=== PATIENT | female | born 1945 | race Caucasian/White ===

== ENCOUNTER 2017-12-19 12:19 | Inpatient (IN) | payer MEDICARE, OTHER ==
[~2017-12-19] VITALS: Ht 165.1 cm; Wt 83.9 kg
[~2017-12-19 12:19] MED LIST: ANUSOL1 EACH RECTAL; AVELOX 400 MG400 MG PO; CARDIZEM60 MG PO; CIPRO500 MG PO; CLOTRIMAZOLE-BE15 GM TOP; COREG6.25 MG PO; COZAAR 50 MG TA50 M2 PO; DUONEB 2.5-0.5 M3 ML INH; FLAGYL500 MG PO; FOLIC ACID1 MG PO; HYDRALAZINE 2525 MG PO; HYDROCORTISONE30 G9 RECTAL; LASIX 20 MG TAB20 MG PO; LEVAQUIN 500 M500 M1 PO; MUCINEX TA600 MG/TA1 PO; NITROGLYCERIN0.4 MG SUBLING; ONDANSETRON HCL4 M2 PO; PERCOCET 5-3251 EACH PO; PREDNISONE 10 M10 M1; PREDNISONE 10 M10 MG PO; PREMARIN VAGI42.5 G1 VAG; PROAIR HFA8.5 GM INH; PULMICORT0.25 MG/2 INH; SINGULAIR 10 MG10 M1 PO; SINGULAIR PO; SYMBICORT80 MCG/4.1 INH; SYNTHROID150 MCG PO; SYNTHROID200 MCG PO; TESSALON PERLE100 MG PO; VENTOLIN17 GM; VICODIN PO; VITAMIN B-12500 MCG PO; VITAMIN D1000 UNI1 PO; XOLAIR IV; XOPENEX HFA15 GM INH; ZYRTEC10 M2 PO
[2017-12-19 12:22] VITALS: BP 171/87
[2017-12-19] MEDS ORDERED: NORVASC2.5 MG PO (12:36)
[2017-12-19] MEDS ORDERED: XANAX 0.25 MG0.25 MG PO (12:36)
[2017-12-19] MEDS ORDERED: AMLODIPINE BESY10 MG PO (12:36)
[2017-12-19] MEDS ORDERED: FLONASE 0.05%50 MCG NASAL (12:41)
[2017-12-19] MEDS ORDERED: CHERATUSSIN AC118 ML PO (12:41)
[2017-12-19] MEDS ORDERED: KLONOPIN0.5 MG PO (12:41)
[2017-12-19] MEDS ORDERED: HYDROCORTISONE30 G9 RECTAL (12:41)
[2017-12-19] MEDS ORDERED: DUONEB 2.5-0.5 M3 ML INH (12:41)
[2017-12-19] MEDS ORDERED: LANTUS100 UNIT/M SUBQ (12:42)
[2017-12-19] MEDS ORDERED: NOVOLOG100 UNIT/1 SUBQ (12:42)
[2017-12-19] MEDS ORDERED: METHYLPREDNISOLO4 MG PO (12:42)
[2017-12-19] MEDS ORDERED: PRINIVIL20 MG PO (12:42)
[2017-12-19] MEDS ORDERED: PROTONIX40 M1 PO (12:43)
[2017-12-19] MEDS ORDERED: REGLAN 10 MG TA10 MG PO (12:43)
[2017-12-19] MEDS ORDERED: PREDNISONE 20 M20 MG PO (12:43)
[2017-12-19] MEDS ORDERED: SPIRIVA INH (12:43)
[2017-12-19 12:55] LABS: HEMATOCRIT 34.6 % (37.0-47.0); HEMOGLOBIN 11.4 gm/dL (12.0-15.0); MCH 28.6 pg (26.0-34.0); MCHC 33.1 g/dL (28.0-37.0); MCV 86.5 fL (80.0-100.0); MPV 8.6 fl. (7.2-11.1); NUCLEATED RBCS 0 /100WBC; PLATELET COUNT* 249 thou/uL (150-400); RDW-CV 15.1 % (10.5-14.5); WBC 16.4 thou/uL (4.0-11.0)
[2017-12-19 13:10] LABS: APTT 22.6 Seconds (25.0-31.3); PROTIME 9.5 Seconds (9.20-11.50)
[2017-12-19 13:11] LABS: ANION GAP 10 mmol/L (7-16); BUN 37 mg/dL (7-18); CALCIUM 8.6 mg/dL (8.5-10.1); CHLORIDE 102 mmol/L (98-107); CO2 26 mmol/L (21-32); CREATININE 1.2 mg/dL (0.6-1.3); GLUCOSE 143 mg/dL (70-99); POTASSIUM 5.8 mmol/L (3.5-5.1); SODIUM 138 mmol/L (136-145)
[2017-12-19 13:21] LABS: ALBUMIN 3.1 g/dL (3.4-5.0); ALKALINE PHOSPHATASE 69 U/L (46-116); NT-PRO BRAIN NAT PEPTIDE 1034 pg/mL (<300); SGOT 19 U/L (15-37); SGPT 26 U/L (30-65); TOTAL BILIRUBIN 0.4 mg/dL (<0.1-1.0); TOTAL PROTEIN 6.5 g/dL (6.4-8.2); TROPONIN-I LEVEL <0.06 ng/mL (<0.06)
[2017-12-19 13:34] LABS: ABSOLUTE MONOCYTES 0.5 thou/uL (0.0-1.2); ABSOLUTE NEUTROPHILS 14.9 thou/uL (1.6-8.1); PLATELET ESTIMATE ADEQUATE
[2017-12-19 17:30] LABS: INFLUENZA A ANTIGEN None Detected (None Detect); INFLUENZA B ANTIGEN None Detected (None Detect)
[2017-12-19 17:57] LABS: CALCIUM 8.6 mg/dL (8.5-10.1); CREATININE 1.4 mg/dL (0.6-1.3); MAGNESIUM 2.2 mg/dL (1.8-2.4); POTASSIUM 5.2 mmol/L (3.5-5.1)
--- NOTE | 2017-12-19 18:55 | NUR ---
PT WAS BOARDING AT 1804, BED ASSIGNMENT PROVIDED BY TAHIR SUP. AND WELT CUTTER STATED TO NOT COMPLETE A BOARDED ASSESSMENT DUE TO GETTING A INPATIENT BED SO SHORTLY.
[2017-12-19 19:10] VITALS: BP 156/79
[2017-12-19 19:57] VITALS: BP 156/78
[2017-12-19 20:00] VITALS: BP 176/77
[2017-12-19 23:35] VITALS: BP 149/67
[2017-12-20 01:59] LABS: HEMATOCRIT 32.3 % (37.0-47.0); HEMOGLOBIN 10.6 gm/dL (12.0-15.0); MCH 28.6 pg (26.0-34.0); MCHC 32.9 g/dL (28.0-37.0); MCV 86.7 fL (80.0-100.0); MPV 8.7 fl. (7.2-11.1); NUCLEATED RBCS 0 /100WBC; PLATELET COUNT* 217 thou/uL (150-400); RBC 3.72 mil/uL (4.20-5.00); RDW-CV 15.2 % (10.5-14.5); WBC 13.3 thou/uL (4.0-11.0)
[2017-12-20 02:18] LABS: CALCIUM 8.6 mg/dL (8.5-10.1); CREATININE 1.5 mg/dL (0.6-1.3); POTASSIUM 5.4 mmol/L (3.5-5.1); TOTAL BILIRUBIN 0.3 mg/dL (<0.1-1.0); TOTAL PROTEIN 6.1 g/dL (6.4-8.2)
[2017-12-20 02:51] LABS: ABSOLUTE LYMPHOCYTES 0.7 thou/uL (0.8-5.3); ABSOLUTE NEUTROPHILS 12.6 thou/uL (1.6-8.1); PLATELET ESTIMATE ADEQUATE
[2017-12-20 03:51] VITALS: BP 137/58
--- NOTE | 2017-12-20 05:32 | NUR ---
PT ADMITTED FROM ER. HISTORY AND ASSESSMENT COMPLETE. SR/ST ON MONITOR. DENIES PAIN. O2 2L NC. CONTACT PRECAUTIONS IN PLACE R/T HX MRSA. ORIENTED TO ROOM, CALL LIGHT, AND BED CONTROLS. VERBALIZED UNDERSTANDING. CALL LIGHT IN REACH. BED IN LOWEST POSITION.
[2017-12-20 07:30] VITALS: BP 157/70
--- NOTE | 2017-12-20 10:19 | EKG ---
[place] [address] ELECTROCARDIOGRAM REPORT Name: THIAGO MONTE Room: [address] ADM IN .R.#: [id number] Admission: 12/19/17 Attend Phys: Zach Lorenzo Discharge: Date of : 43 Report #: [id number] THIS REPORT FOR: //name// [facility] ED Test Date: 2017-12-19 Test Time: 12:30:09 Pat Name: THIAGO MONTE Department: Room: [facility] Gender: F Limited Radiology Technician: REI : 1945 Requested By: Kit Anderson Order Number: [id number] MD: Case Riddle Measurements Intervals [place] Rate: 105 P: 81 NM: 159 QRS: 58 QRSD: 100 T: 73 QT: 321 QTc: 425 Interpretive Statements Sinus tachycardia Probable left atrial enlargement Baseline wander in lead(s) V1 Compared to ECG 03/09/2017 18:11:17 No significant changes Electronically Signed On 12-20-2017 10:19:37 MINESWEEPING OFFICER by Case Riddle [email or web address] <ELECTRONICALLY SIGNED> By: Case Riddle MD, [facility] 12/20/17 1019 1230 1230 Case Riddle MD, [facility] /EPI
--- NOTE | 2017-12-20 10:47 | NUR ---
CM ASSESSMENT: Pt is A&O. Resides at home alone. Pt states that within the past 3 months, she has been having pulmonary issues. Pt is independent with ADLs, is able to cook, but stated that she would get SOB with cleaning. Pt has support family, friends and christian members that assists as needed. Pt continues to drive. Pt has a walker and cane at home that she can use as needed. Pt wears home o2 at night, provided through [employer]. Pt also has a cpap and neb. Hx of [facility], Pt wants to use them [place]. Pt has begun thinking about her future and has been looking at alf communities and is on the waiting list of one, hopes to be able to go next year. CM following for dc needs. [facility] p: [phone], f:[phone]
--- NOTE | 2017-12-20 11:00 | NUR ---
RECEIVED PT CARE 0700. PT IS ALERT AND ORIENTED X4. VSS. INSTRUCTIONAL SUPPORT TECHNICIAN TRACING ST. HEART RATE LOW 100'S. PT UP IN ROOM WITH BATHROOM PRIVILEDGES. GAIT IS STEADY. SHE DENIES BEING SOA. O2 SAT 92% ON ROOM AIR. STATES SHE WEARS O2 AT 2L HS AT HOME. AM ASSESSMENT CHARTED. MEDS PER DEC. WAITING FOR HOSPITALIST TO ROUND. CALL LIGHT WITHIN REACH. WILL CONTINUE TO MONITOR.
[2017-12-20 11:11] VITALS: BP 157/70
[2017-12-20 12:03] VITALS: BP 152/66
--- NOTE | 2017-12-20 16:59 | 2DMMODE ---
[place] [address] 2 D/M-MODE ECHOCARDIOGRAM Name: THIAGO MONTE Room: [address] IN M.R.#: [id number] Admission: 12/19/17 Attend Phys: Perez Mars Discharge: Date of : 43 Date of Service: 12/20/17 1659 Report #: [id number] THIS REPORT FOR: //name// APPROVED REPORT Study performed: 12/20/2017 14:26:52 EXAM: Comprehensive 2D, Doppler, and color-flow Echocardiogram Patient Location: Bedside BSA: 1.89 HR: 116 bpm BP: 157/70 mmHg Other Information Study Quality: Fair Indications Cardiomyopathy 2D Dimensions LVEF(%): 77.45 (>50%) IVSd: 9.99 (7-11mm) LVOT Diam: 18.07 (18-24mm) LVDd: 49.52 mm PWd: 8.55 (7-11mm) Ascending Ao: 27.30 (22-36mm) LVDs: 26.62 (25-40mm) Aortic Root: 27.25 mm Fink's LVEF: 77.45 % Volumes Left Atrial Volume (Systole) LA ESV Index: 38.30 mL/m2 Aortic Valve AoV Peak Kin.: 2.98 m/s AO Peak Gr.: 35.00 mmHg LVOT Max P.44 mmHg AO Mean Gr.: 20.00 mmHg LVOT Mean P.03 mmHg LVOT Max V: 1.83 m/s AO V2 VTI: 52.70 cm LVOT Mean V: 1.22 m/s MITCHELL (VTI): 1.83 cm2 LVOT V1 VTI: 37.70 cm Mitral Valve MV Mean Gr.: 7.51 mmHg E/A Ratio: 0.88 MV Decel. Time: 113.95 ms MV E Max Kin.: 1.28 m/[place] [address] 2 D/M-MODE ECHOCARDIOGRAM Name: THIAGO MONTE Room: [address] IN ..#: [id number] Admission: 12/19/17 Attend Phys: Perez Mars Discharge: Date of : 43 Date of Service: 12/20/17 1659 Report #: [id number] MV PHT: 33.04 ms MVA (PHT): 6.66 cm2 TDI E/Lateral E': 9.85 E/Medial E': 8.53 Medial E' Kin.: 0.15 m/s Lateral E' Kin.: 0.13 m/s Pulmonary Valve PV Peak Kin.: 1.58 m/s PV Peak Gr.: 9.98 mmHg Tricuspid Valve RAP Estimate: 20.00 mmHg TR Peak Gr.: 52.40 mmHg RVSP: 72.40 mmHg PA Pressure: 72.40 mmHg Left Ventricle The left ventricle is normal size. There is normal LV segmental wall motion. There is normal left ventricular wall thickness. Left ventricular systolic function is normal. The left ventricular ejection fraction is within the normal range. LVEF is 60-65%. Right Ventricle The right ventricle is normal size. The right ventricular systolic function is normal. Atria Left atrium is mildly dilated. Right atrium is dilated. Aortic Valve Not well visualized. No aortic regurgitation is present. Mild aortic stenosis. Mitral Valve Mitral valve leaflets are mildly thickened. Mild mitral regurgitation. Moderate mitral stenosis. Tricuspid Valve The tricuspid valve is normal in structure. Mild tricuspid regurgitation. estimated pa pressure 50 mm Hg Pulmonic Valve The pulmonary valve is normal in structure. There is no pulmonic valvular regurgitation. [place] [address] 2 D/M-MODE ECHOCARDIOGRAM Name: THIAGO MONTE Room: [address]#: [id number] Admission: 12/19/17 Attend Phys: Perez Mars Discharge: Date of : 43 Date of Service: 12/20/17 1659 Report #: [id number] The aortic root is normal in size. IVC is dilated. Pericardium There is no pericardial effusion. <Conclusion> LVEF is 60-65%. Left atrium is mildly dilated. Mild aortic stenosis. Mild mitral regurgitation. Mild tricuspid regurgitation. estimated pa pressure 50 mm Hg <ELECTRONICALLY SIGNED> By: Case Riddle MD, FACC 12/20/171658 58 58 Case Riddle MD, FAC /INF
[2017-12-20 17:13] VITALS: BP 130/56
--- NOTE | 2017-12-20 17:14 | NUR ---
PATIENT STATES SHE IS FEELING MUCH BETTER, STERIODS ARE HELPING, LOZENGES ORDERED PER PATIENT REQUEST. FLUIDS STARTED PER DR ORDERS. PATIENT HAS NO OTHER COMPLAINTS AT THIS TIME. READY FOR DINNER. BED IN LOEWST POSITION, TIME STUDY OBSERVER IN PLACE, CALL LIGHT WITHIN REACH.
[2017-12-20 20:00] VITALS: BP 114/57
[2017-12-21] VITALS: BP 107/48
--- NOTE | 2017-12-21 00:39 | NUR ---
SLEEPING MOST OF NIGHT. DENIES COMPLAINTS OF PAIN OR DISCOMFORT. NO SIGN OF DISTRESS. BED IN LOW POSITION, CALL LIGHT IN REACH, ALARM ON. WILL PROCEED WITH CURRENT PLAN OF CARE AT THIS TIME.
[2017-12-21 04:00] VITALS: BP 115/54
[2017-12-21 05:09] LABS: ABSOLUTE LYMPHOCYTES 0.5 thou/uL (0.8-5.3); ABSOLUTE MONOCYTES 0.3 thou/uL (0.0-1.2); ABSOLUTE NEUTROPHILS 17.1 thou/uL (1.6-8.1); BASOPHILS 0.1 %; HEMOGLOBIN 10.2 gm/dL (12.0-15.0); LYMPHOCYTES 2.7 %; MCH 28.5 pg (26.0-34.0); MCHC 32.9 g/dL (28.0-37.0); MCV 86.7 fL (80.0-100.0); MONOCYTES 1.6 %; MPV 9.2 fl. (7.2-11.1); NUCLEATED RBCS 0 /100WBC; PLATELET COUNT* 194 thou/uL (150-400); POLYS 95.6 %; RBC 3.57 mil/uL (4.20-5.00); RDW-CV 15.4 % (10.5-14.5); WBC 17.9 thou/uL (4.0-11.0)
[2017-12-21 05:51] LABS: ALBUMIN 2.9 g/dL (3.4-5.0); CALCIUM 7.8 mg/dL (8.5-10.1); CREATININE 1.7 mg/dL (0.6-1.3); POTASSIUM 5.1 mmol/L (3.5-5.1); TOTAL BILIRUBIN 0.3 mg/dL (<0.1-1.0); TOTAL PROTEIN 5.9 g/dL (6.4-8.2)
[2017-12-21 08:00] VITALS: BP 152/65
--- NOTE | 2017-12-21 09:00 | NUR ---
ASSUMED CARE OF PT AT 0730. PT RESTING IN BED WAITING FOR BREAKFAST. PT A&0X4, DENIES ANY PAIN OR SHORTNESS OF BREATH AT THIS TIME. PT TRACING ST WITH PVC ON THE CAR SALES CONSULTANT. ON 2L NC SAT 96%. PT WEARS HOME CPAP AT [facility]. IVF. PT UP WITH 1 ASSIST, UNSTEADY GAIT AT TIMES. PULMONARY CONSULT IN PLACE. PT GOAL FOR TODAY IS TO MONITOR RESPIRATORY STATUS AND INCREASE ACTIVITY. PT RECEIVING IV STEROIDS. AM ASSESSMENT CHARTED. MEDICATIONS PER DEC. PT REPOSITIONS SELF WITH REMINDERS. HOURLY ROUNDING OBSERVED. BED IN LOW POSITION. CALL LIGHT WITHIN REACH. WILL CONTINUE PLAN OF CARE.
[2017-12-21 11:32] LABS: CALCIUM 7.7 mg/dL (8.5-10.1); CREATININE 1.9 mg/dL (0.6-1.3); POTASSIUM 4.6 mmol/L (3.5-5.1)
[2017-12-21 11:38] VITALS: BP 130/61
[2017-12-21 16:09] VITALS: BP 124/55
--- NOTE | 2017-12-21 17:53 | NUR ---
NO ACUTE CHANGES THROUGHOUT SHIFT. REFER TO CHARTING. PT UP TO CHAIR FOR MEALS TODAY. TOLERATED WELL. PT DENIES ANY PAIN OR SHORTNESS OF BREATH THROUGHOUT SHIFT. PT CONTINUES TO TRACE SR/ST ON THE HANDLE BENDER. ON 2L NC SAT UPPER 90'S. IVF. MEDICATIONS PER DEC. PT REPOSITIONS SELF IN BED WITH REMINDERS. HOURLY ROUNDING OBSERVED. BED IN LOW POSITION. CALL LIGHT WITHIN REACH. WILL CONTINUE PLAN OF CARE.
[2017-12-21 20:00] VITALS: BP 102/47
[2017-12-22] VITALS: BP 117/47
--- NOTE | 2017-12-22 01:00 | NUR ---
ALERT AND ORIENTED X 4. RESTING IN BED. CONT. CPAP AT NIGHT. DENIES COMPLAINTS OF PAIN OR DISCOMFORT. NO SIGN OF DISTRESS. CONT. WITH PLAN OF CARE. BED IN LOW POSITION, CALL LIGHT IN REACH. BED ALARM ON.
[2017-12-22 04:00] VITALS: BP 114/52
[2017-12-22 05:15] LABS: ABSOLUTE LYMPHOCYTES 0.3 thou/uL (0.8-5.3); ABSOLUTE MONOCYTES 0.3 thou/uL (0.0-1.2); ABSOLUTE NEUTROPHILS 14.5 thou/uL (1.6-8.1); BASOPHILS 0.1 %; HEMATOCRIT 29.5 % (37.0-47.0); HEMOGLOBIN 9.7 gm/dL (12.0-15.0); LYMPHOCYTES 1.7 %; MCH 28.8 pg (26.0-34.0); MCHC 32.9 g/dL (28.0-37.0); MCV 87.5 fL (80.0-100.0); MONOCYTES 1.7 %; MPV 9.2 fl. (7.2-11.1); NUCLEATED RBCS 0 /100WBC; PLATELET COUNT* 178 thou/uL (150-400); POLYS 96.5 %; RBC 3.37 mil/uL (4.20-5.00); RDW-CV 15.7 % (10.5-14.5)
[2017-12-22 05:28] LABS: ALBUMIN 2.8 g/dL (3.4-5.0); CALCIUM 7.5 mg/dL (8.5-10.1); CREATININE 2.1 mg/dL (0.6-1.3); POTASSIUM 5.2 mmol/L (3.5-5.1); TOTAL BILIRUBIN 0.3 mg/dL (<0.1-1.0); TOTAL PROTEIN 5.7 g/dL (6.4-8.2)
[2017-12-22 07:50] VITALS: BP 117/53
[2017-12-22 11:31] VITALS: BP 124/56
[2017-12-22 15:27] VITALS: BP 128/55
--- NOTE | 2017-12-22 19:00 | NUR ---
PT ANXIOUS THROUGH SHIFT AT TIMES. PT WOULD USE BATHROOM AND TAKE OFF 02 AND THEN GET BACK TO BED AND USE CALL HANNAH STAING THAT SHE CAN NOT BREATH. WHEN DOING ROOM CHECKS NOTED THAT SEVERAL TIMES HAD 02 OFF.CHECKED 02 SATS SEVERAL TIMES DURING SHIFT NOTED THAT SATS WERE ALWAYS 97%, LUNG SOUNDS WERE ALWAYS DIMINISHED.PT BIPAP IN ROOM FOR NOC. PT REQUESTED HS XAMAX AT THIS TIME WILL MAKE ON COMING SHIFT AWARE.
[2017-12-22 20:00] VITALS: BP 115/54
[2017-12-22 23:47] LABS: URINE BILIRUBIN NEGATIVE (Negative); URINE BLOOD NEGATIVE (Negative); URINE CLARITY CLEAR; URINE COLOR YELLOW; URINE GLUCOSE-RANDOM NEGATIVE (Negative); URINE KETONES NEGATIVE (Negative); URINE LEUKOCYTES-REFLEX NEGATIVE (Negative); URINE NITRITE-REFLEX NEGATIVE (Negative); URINE PROTEIN NEGATIVE (Negative); URINE UROBILINOGEN 0.2 E.U./dl (0.2-1.0)
[2017-12-23] VITALS: BP 110/51
[2017-12-23 04:08] VITALS: BP 130/57
[2017-12-23 05:06] LABS: ABSOLUTE LYMPHOCYTES 0.1 thou/uL (0.8-5.3); ABSOLUTE MONOCYTES 0.3 thou/uL (0.0-1.2); BASOPHILS 0.2 %; HEMATOCRIT 29.9 % (37.0-47.0); HEMOGLOBIN 9.6 gm/dL (12.0-15.0); LYMPHOCYTES 1.2 %; MCH 28.6 pg (26.0-34.0); MCHC 32.2 g/dL (28.0-37.0); MCV 88.9 fL (80.0-100.0); MONOCYTES 2.2 %; MPV 9.1 fl. (7.2-11.1); NUCLEATED RBCS 0 /100WBC; PLATELET COUNT* 174 thou/uL (150-400); POLYS 96.4 %; RBC 3.36 mil/uL (4.20-5.00); RDW-CV 15.7 % (10.5-14.5); WBC 11.4 thou/uL (4.0-11.0)
[2017-12-23 05:30] LABS: ALBUMIN 3.2 g/dL (3.4-5.0); CALCIUM 7.6 mg/dL (8.5-10.1); CREATININE 2.3 mg/dL (0.6-1.3); POTASSIUM 5.2 mmol/L (3.5-5.1); TOTAL BILIRUBIN 0.5 mg/dL (<0.1-1.0)
[2017-12-23 05:40] LABS: ALBUMIN 3.3 g/dL (3.4-5.0); CALCIUM 7.7 mg/dL (8.5-10.1); CREATININE 2.3 mg/dL (0.6-1.3); MAGNESIUM 2.4 mg/dL (1.8-2.4); PHOSPHORUS* 6.1 mg/dL (2.5-4.9); POTASSIUM 5.4 mmol/L (3.5-5.1)
--- NOTE | 2017-12-23 06:02 | NUR ---
A&O X4 CALM COOPERITVE. PT SR-ST ON THE MONITOR. 3L O2 AND BIPAP AT HS. PT ON STRICT I&O AND 2000 FLUID RESTRICTION. X1 / STANDBY ASSIST. ACCU CHECKS. MAINTAIN AIRWAY IS PT GOAL. DENIES PAIN. FALL PRECAUTIONS IN PLACE/ HOURLY ROUNDING FOR SAFETY.
[2017-12-23 08:30] VITALS: BP 112/52
--- NOTE | 2017-12-23 10:53 | CON ---
[address] [address] CONSULTATION Name: THIAGO MONTE Room: [address] IN M.R.#: [id number] Admission: 12/19/17 Attend Phys: Zach Lorenzo Discharge: Date of : 43 Report #: [id number] THIS REPORT FOR: //name// CC: Case Mars CONSULT REQUESTED BY: Hospitalist. INDICATION FOR CONSULTATION: Pulmonary evaluation. HISTORY OF PRESENT ILLNESS: A 71-year-old female with past medical history includes a history of bronchial asthma. The patient has been treated by another web site designer, is reported to be on both Medrol as well as prednisone half-way, is not on oxygen during the day. She is on a CPAP and oxygen while asleep. The patient previously has also received Xolair, currently not on Xolair, also has a history of atrial flutter, not on anticoagulation. He reports increasing shortness of breath over several months, worsening significantly over the last several days, some chest discomfort associated with respiration and cough, but no sputum production, no runny nose or sore throat, no swelling of lower extremities, no calf pain. Has sleep complaints at baseline, joint pains at baseline, has some irregular bowel habits at baseline. REVIEW OF SYSTEMS: Negative for 12 points except as mentioned above. 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 SOCIAL HISTORY: Lifetime nonsmoker. No known history of heavy alcohol use or illegal drug use. ALLERGIES: FENTANYL, ERYTHROMYCIN AND SULFONAMIDE ANTIBIOTICS ARE MENTIONED ALLERGIES. CURRENT MEDICATIONS: List in [facility] reviewed. HOME MEDICATIONS: Discussion as above. PHYSICAL EXAMINATION: GENERAL: Alert, awake and oriented, not in any distress. VITAL SIGNS: Tachycardic, heart rate 115, blood pressure 152/66. She is afebrile. She is saturating in the mid 90s. She is not on oxygen. She is afebrile, temperature is 37.1. THROAT: No erythema, [place] [address] CONSULTATION Name: THIAGO MONTE Room: [address]#: [id number] Admission: 12/19/17 Attend Phys: Zach Lorenzo Discharge: Date of : 43 Report #: [id number] NECK: Does not show raised JVP. CHEST: Clear to auscultation. HEART: Regular, no murmur. ABDOMEN: Soft and nontender. EXTREMITIES: Lower extremities show no edema, no calf tenderness. LABORATORY DATA: The patient's CTA chest is reviewed, shows a calcified lung nodule. There are no infiltrates or pulmonary embolism identified. The patient's lab work also in [facility] reviewed. ASSESSMENT AND PLAN: 1. Bronchial asthma exacerbation. Agree with current therapy, continue Solu-Medrol as well as nebulized bronchodilators. We can go either way on adding doxycycline now or watching and seeing how she does. I did not order doxycycline for now. If she worsens, I will have a low threshold of adding it. Note that she is colonized with MRSA. There is no obvious infiltrate on the chest x-ray. The patient is on 2 corticosteroids long-term in the past as does use Xolair. This does need to be evaluated further. I do not see a reason to keep her on 2 corticosteroids half-way. She is also likely to be appropriate candidate for Xolair long-term and therefore, I will do relevant investigations. She has an appointment with Dr. Marinelli for a new set up as outpatient towards the end of this month. 2. Obstructive sleep apnea. We would recommend use of home CPAP and oxygen while asleep. For now, I do not have previous sleep studies available at this time. 3. Possible history of immune deficiency. The patient also reports that she has received some IV infusions for a possible immune deficiency. I do not have details available at this time. 4. Tachycardia/history of atrial fibrillation. Would defer followup to the primary service. I also recommend obtaining an echocardiogram. 5. Acute renal failure. The patient's creatinine is rising from 1.2 yesterday to 1.5. She received IV dye yesterday. Her potassium was 5.8 yesterday, down to 5.4 today. I will give her normal saline. Thanks for this consultation. <ELECTRONICALLY SIGNED> By: Kieran Parker MD 12/23/17 1053 1314 [id number] Parker MD /nt
[2017-12-23 12:00] VITALS: BP 120/50
[2017-12-23 16:00] VITALS: BP 124/52
[2017-12-23 19:50] VITALS: BP 125/54
--- NOTE | 2017-12-23 19:55 | NUR ---
ASSUMED PT CARE AT 0730, FULL ASSESMENT DONE CHARTED. PT A/O X4, ANXOIUS, SOA AT TIMES. ON 2L O2, WAS ON BIPAP A MAJORITY OF THIS SHIFT. PT REPORTS NOT SLEEPING WELL LAST NIGHT AND WANTED BIPAP ON TO HELP HER SLEEP. PT ST ON THE MONIOR. VSS, UP WITH 1 ASSIST. NEEDS REENFORCEMNT TO USE CALL LIGHT. DENIES PAIN, HOPEFUL TO GET SOME INFORMATION ON PULMONARY HTN CENTER? FLUIDS DC'D TODAY, FALL PRECATUIONS IN PLACE. REPORT GIVEN TO BLANCA AMAYA.
[2017-12-24] VITALS (7 sets, daily range): BP systolic 115–140; BP diastolic 48–60
[2017-12-24 05:17] LABS: HEMATOCRIT 28.6 % (37.0-47.0); HEMOGLOBIN 9.3 gm/dL (12.0-15.0); MCH 28.9 pg (26.0-34.0); MCHC 32.6 g/dL (28.0-37.0); MCV 88.7 fL (80.0-100.0); RBC 3.22 mil/uL (4.20-5.00); WBC 8.3 thou/uL (4.0-11.0)
[2017-12-24 05:24] LABS: CALCIUM 7.4 mg/dL (8.5-10.1); CREATININE 2.7 mg/dL (0.6-1.3); POTASSIUM 5.3 mmol/L (3.5-5.1); TOTAL BILIRUBIN 0.3 mg/dL (<0.1-1.0); TOTAL PROTEIN 5.6 g/dL (6.4-8.2)
[2017-12-24 05:40] LABS: ALBUMIN 3.1 g/dL (3.4-5.0); CALCIUM 7.5 mg/dL (8.5-10.1); CREATININE 2.7 mg/dL (0.6-1.3); PHOSPHORUS* 6.4 mg/dL (2.5-4.9); POTASSIUM 5.4 mmol/L (3.5-5.1)
--- NOTE | 2017-12-24 06:48 | NUR ---
A&O X4 CALM COOPERITVE. 3L O2 AND BIBAP AT HS. PT STEADY ON FEEL. STICT I&O AND 2K FLUID RESTRICTION. SR ON THE MONITOR. VITALS WNL. FALL PRECAUTIONS IN PLACE. HOURLY ROUNDING FOR SAFETY.
--- NOTE | 2017-12-24 14:50 | CON ---
[address] [address] CONSULTATION Name: LAVELLTHIAGO E Room: [address] IN .R.#: [id number] Admission: 12/19/17 Attend Phys: Zach Lorenzo Discharge: Date of : 43 Report #: [id number] THIS REPORT FOR: //name// CC: Case Mars DATE OF SERVICE: 12/22/2017 REQUESTING PHYSICIAN: Perez Mars DO REASON FOR CONSULTATION: Hypogammaglobulinemia. The patient was seen on 12/22. HISTORY OF PRESENT ILLNESS: This is a pleasant 71-year-old woman with severe asthma and sleep apnea who was admitted to the hospital with asthma exacerbation. She has a longstanding history of asthma. She tells me she had asthma as a child, in her midlife her asthma was better, but after 50s her asthma became persistent. She has been on inhalers. Currently, she is on Symbicort, albuterol nebulizer and Xolair. She apparently has been seeing application consultant most of the time and only recently established care with Pulmonary in [place]. She states that she is trying to switch her care to . Pulmonology, Dr. Parker, has seen her. 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 My partner, has been treating her with monthly IVIG. She has been on IVIG for 8 months now. She has a history of frequent exacerbations of asthma with frequent upper respiratory infections. She has not had pneumonia recently. Last IVIG injection was 2 weeks ago. She is scheduled for next IVIG on 01/05. Hematology consult is requested for immunodeficiency. She tells me she is doing okay. She tells me that she has developed pulmonary hypertension. She has complaints of difficulty with breathing, but does not have a productive cough. She does not have fever or chills. PAST MEDICAL HISTORY: Significant for bronchial asthma, severe COPD, atrial fibrillation, MRSA infection, congestive heart failure because of diastolic dysfunction ? and pulmonary hypertension. SOCIAL HISTORY: She is a lifetime nonsmoker. FAMILY HISTORY: Noncontributory. REVIEW OF SYSTEMS: See above. PHYSICAL EXAMINATION: GENERAL: Reveals well-developed, well-nourished woman in mild acute distress because of difficulty of breathing, but wearing oxygen via nasal cannula. VITAL SIGNS: Blood pressure 124/56, heart rate is 101, temperature 97.4 [place] 19[place] [address] CONSULTATION Name: THIAGO MONTE Room: [address]#: [id number] Admission: 12/19/17 Attend Phys: Zach Lorenzo Discharge: Date of : 43 Report #: [id number] HEENT: Does not reveal thrush. HEART: No JVD. LUNGS: No wheezing, but somewhat decreased breath sounds. ABDOMEN: Obese. LOWER EXTREMITIES: No edema. MENTAL STATUS: Alert and oriented x 3. LABORATORY DATA: Hemoglobin 9.7, white count 15.0, platelets 178 and hemoglobin on admission was 11.4. Eosinophils 0%. Sodium 138, potassium 5.2, chloride 106, BUN 76 and creatinine 2.1. IgG level 987, IgA 163 and IgM 85. ASSESSMENT AND PLAN: 1. Immunodeficiency. The patient has a history of immunodeficiency with low IgG. Not sure exactly what the syndrome she has. I will review doctors' notes. She is receiving monthly IVIG. At this point, I recommend to continue monthly IVIG. She is due for the next IVIG on 01/05. Hopefully, she will be discharged home before that. 2. Acute kidney failure on chronic. The patient has a history of kidney failure in the past and has been on dialysis for 7 weeks. 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 Consider Nephrology consult. 3. Asthma. Continue management with Dr. Parker. Thank you very much for allowing me to participate in the care of this patient. <ELECTRONICALLY SIGNED> By: Xenia Koo MD 12/24/17 1450 1444 0004Xenia Koo MD /nt
--- NOTE | 2017-12-24 17:47 | NUR ---
ASSUMED PT CARE AT 729, FULL ASSESMENT DONE CHARTED. PT A/O X4, VERY ANXIOUS. BIPAP PRN, OK WITH DR SEYMOUR, NEW ORDERS PER NEPHROLOGY, REFER TO DEC. VSS, BS STABLE, PT COUGHING UP YELLOW SPUTUME. IV REPLACED TO RIGHT RA. UP SBA, FALL PRECATUIONS IN PLACE. PT USING CALL LIGHT APPROPRILATY. WILL CONTINUE TO MONITOR
[2017-12-25 03:52] VITALS: BP 114/50
--- NOTE | 2017-12-25 04:52 | NUR ---
ASSUMED CARE OF PT AT 1900. PT IS ALERT AND ORIENTED. VSS. PERRLA. NO COMPLAINTS OF PAIN. PT HAS BEEN WEARING BIPAP FOR MOST OF THE NIGHT. PT IS IN SINUS RYTHM ON THE TELEMETRY. PT IS RESTING COMFORTABLY IN BED. RESPIRATIONS ARE EVEN AND NONLABORED. WILL CONTINUE TO MONITOR PT.
[2017-12-25 07:07] LABS: HEMATOCRIT 29.6 % (37.0-47.0); HEMOGLOBIN 9.7 gm/dL (12.0-15.0); MCH 29.1 pg (26.0-34.0); MCHC 32.8 g/dL (28.0-37.0); MCV 88.6 fL (80.0-100.0); RBC 3.34 mil/uL (4.20-5.00); RDW-CV 16.1 % (10.5-14.5); WBC 10.7 thou/uL (4.0-11.0)
[2017-12-25 07:20] LABS: CALCIUM 7.4 mg/dL (8.5-10.1); POTASSIUM 5.2 mmol/L (3.5-5.1); TOTAL BILIRUBIN 0.4 mg/dL (<0.1-1.0); TOTAL PROTEIN 5.8 g/dL (6.4-8.2)
--- NOTE | 2017-12-25 08:10 | NUR ---
Pt resting in bed, appears alert o x 4, denies chest pain, SOB, pain or discomfort. wears BIAP at HS, o2 at 2l per NC
[2017-12-25 08:37] VITALS: BP 129/54
[2017-12-25 12:00] VITALS: BP 115/52
[2017-12-25 16:00] VITALS: BP 116/89
--- NOTE | 2017-12-25 18:25 | NUR ---
Pt progressing towards goals,. In am had expressed concerns about transferring to [facility]. . She statted alot of her physicians are there Wears BIPAP when sleeping. Remains o x 4, denies chest pain, SOB, pain or discomfort
[2017-12-25 19:45] VITALS: BP 127/51
[2017-12-26] VITALS (7 sets, daily range): BP systolic 119–143; BP diastolic 50–62
--- NOTE | 2017-12-26 01:40 | NUR ---
ASSUMED CARE OF PT AT 1900. PT IS ALERT AND ORIENTED. VSS. PERRLA. NO COMPLAINTS OF PAIN. PT GETS SOA WITH EXERTION. PT IS VERY COMPLIANT WITH BIPAP. PT IS IN SINUS RYTHM ON THE TELEMETRY. PT IS RESTING COMFORTABLY IN BED. RESPIRATIONS ARE EVEN AND NONLABORED. WILL CONTINUE TO MONITOR PT.
[2017-12-26 06:14] LABS: HEMATOCRIT 28.3 % (37.0-47.0); HEMOGLOBIN 9.4 gm/dL (12.0-15.0); MCH 29.4 pg (26.0-34.0); MCHC 33.3 g/dL (28.0-37.0); MCV 88.1 fL (80.0-100.0); MPV 8.9 fl. (7.2-11.1); RBC 3.21 mil/uL (4.20-5.00); RDW-CV 15.6 % (10.5-14.5); WBC 10.9 thou/uL (4.0-11.0)
[2017-12-26 06:15] LABS: ALBUMIN 2.6 g/dL (3.4-5.0); CALCIUM 7.5 mg/dL (8.5-10.1); CREATININE 2.7 mg/dL (0.6-1.3); POTASSIUM 5.1 mmol/L (3.5-5.1); TOTAL BILIRUBIN 0.3 mg/dL (<0.1-1.0); TOTAL PROTEIN 5.2 g/dL (6.4-8.2)
[2017-12-26 06:44] LABS: ALBUMIN 2.8 g/dL (3.4-5.0); CALCIUM 7.9 mg/dL (8.5-10.1); CREATININE 2.7 mg/dL (0.6-1.3); MAGNESIUM 2.8 mg/dL (1.8-2.4); PHOSPHORUS* 5.3 mg/dL (2.5-4.9); POTASSIUM 5.3 mmol/L (3.5-5.1)
--- NOTE | 2017-12-26 17:45 | NUR ---
PATIENT RESTING IN BED. UP TO BEDSIDE COMMODE WITH X1 ASSIST. VITAL SIGNS STABLE AND PATIENT IN NOAPPARENT DISTRESS AT THIS TIME. PAITNET UTILIZING BIPAP WHILE SLEEPING AND PRN DURING THE DAY ALONG WITH 2.0 L PER NASAL CANULA. SINUS RHYTHM ON MONITOR. HOURLY ROUNDING COMPLETED FOR PATIENT SAFETY. RENAL FOLLOWING CLOSELY FOR ASSESSMENT OF KIDNEY FUNCTION AND POSSIBLE NEED FOR DIALYSIS.
[2017-12-27 04:00] VITALS: BP 119/48
--- NOTE | 2017-12-27 04:38 | NUR ---
ASSUMED CARE OF PT AT 1900. PT IS ALERT AND ORIENTED. VSS. PERRLA. NO COMPLAINTS OF PAIN. UP WITH 1 ASSIST. PT IS WEARING BIPAP AT THIS TIME. PT IS IN SINUS RYTHM ON THE TELEMETRY. PT IS RESTING COMFORTABLY IN BED. RESPIRATIONS ARE EVEN AND NONLABORED. WILL CONTINUE TO MONITOR PT.
[2017-12-27 05:27] LABS: HEMATOCRIT 30.5 % (37.0-47.0); HEMOGLOBIN 9.8 gm/dL (12.0-15.0); MCH 28.5 pg (26.0-34.0); MCHC 32.3 g/dL (28.0-37.0); MCV 88.4 fL (80.0-100.0); RBC 3.45 mil/uL (4.20-5.00); RDW-CV 15.1 % (10.5-14.5); WBC 13.9 thou/uL (4.0-11.0)
[2017-12-27 05:37] LABS: ALBUMIN 2.7 g/dL (3.4-5.0); CALCIUM 8.2 mg/dL (8.5-10.1); CREATININE 2.5 mg/dL (0.6-1.3); POTASSIUM 5.4 mmol/L (3.5-5.1); TOTAL BILIRUBIN 0.4 mg/dL (<0.1-1.0); TOTAL PROTEIN 5.3 g/dL (6.4-8.2)
[2017-12-27 08:00] VITALS: BP 134/52
[2017-12-27 11:37] VITALS: BP 131/55
--- NOTE | 2017-12-27 12:04 | NUR ---
Pt reports feeling better and anxious to go home. Kidney function improving. Goal continues to be to return home at co. Following.
--- NOTE | 2017-12-27 14:04 | NUR ---
Nutrition: Pt admitted with SOA. H/o asthma. Recent IV dye, now ARF. Pt wants to go home, feels better. +BM yday. RX: solumedrol, folic acid. Labs: albumin 2.7, prealb 38.6, BUN 127, creat 2.5, K+ 5.4, BG 206. Renal diet. [facility], currently 211#. Pt appears at low risk at this time.
[2017-12-27 15:53] VITALS: BP 159/56
--- NOTE | 2017-12-27 18:52 | NUR ---
PAITNET RESTING IN BED. UP TO CHAIR TODAY. AMBULATES WITH ASSSIT X1. PRN BIPAP USAGE OTHERWISE 3.0 L PER NASAL CANULA. EDUCATION RELATED TO RENAL FUNCTION AND RESPIRATORY STATUS PROVIDED FOR PATIENT. HOURLY ROUNDING COMPLETED FOR PATIENT SAFETY AND PATIENT PARTICIPATED IN PLAN OF CARE.
[2017-12-27 20:00] VITALS: BP 137/57
[2017-12-28] VITALS: BP 119/44
[2017-12-28 05:00] VITALS: BP 136/55
[2017-12-28 05:54] LABS: HEMATOCRIT 28.8 % (37.0-47.0); HEMOGLOBIN 9.4 gm/dL (12.0-15.0); MCH 28.2 pg (26.0-34.0); MCHC 32.7 g/dL (28.0-37.0); MCV 86.3 fL (80.0-100.0); RBC 3.34 mil/uL (4.20-5.00); RDW-CV 15.1 % (10.5-14.5); WBC 12.7 thou/uL (4.0-11.0)
[2017-12-28 06:21] LABS: ALBUMIN 2.5 g/dL (3.4-5.0); CALCIUM 8.2 mg/dL (8.5-10.1); MAGNESIUM 2.8 mg/dL (1.8-2.4); POTASSIUM 5.3 mmol/L (3.5-5.1); TOTAL BILIRUBIN 0.4 mg/dL (<0.1-1.0); TOTAL PROTEIN 5.1 g/dL (6.4-8.2)
--- NOTE | 2017-12-28 06:33 | NUR ---
ASSUMED PATIENT CARE AT 1900. PATEINT ALERT AND ORIENTED TIMES FOUR. COMPLIANT WITH BIPAP THROUGH THE NIGHT. ABLE TO AMBULATE TO THE BSC WITH STB. STATES THAT SHE IS GOING TO "ONLY DRINK WATER TODAY TO HELP WITH KIDNEY FUNCTION SO SHE CAN GO HOME" NO COMLPAINTS OF PAIN OR DISCOMFORT. VITAL SIGNS REMAIN STABLE. PECAN HULLER AND HOURLY ROUNDING COMPLETED DOCUMENTED.
[2017-12-28 08:00] VITALS: BP 139/53
[2017-12-28 10:31] VITALS: BP 157/70
--- NOTE | 2017-12-28 10:32 | NUR ---
Per Dr Marinelli, MELI provided Pt with [facility] number [phone], to schedule and appt after discharge.
[2017-12-28 12:22] VITALS: BP 157/70
--- NOTE | 2017-12-28 12:29 | NUR ---
Pt discharging to home today. CM faxed orders to [facility].
[2017-12-28] MEDS ORDERED: PREDNISONE 10 M10 MG PO (13:45)
--- NOTE | 2018-01-08 13:26 | CON ---
[address] [address] CONSULTATION Name: THIAGO MONTE Room: [address]#: [id number] Admission: 12/19/17 Attend Phys: Zach Lorenzo Discharge: 12/28/17 Date of : 43 Report #: [id number] THIS REPORT FOR: //name// CC: Case Mars NEPHROLOGY CONSULTATION CONSULTING PHYSICIAN: Perez Mars DO REASON FOR CONSULTATION: Acute kidney injury. HISTORY OF PRESENT ILLNESS: A 71-year-old female who was admitted with asthma exacerbation, respiratory failure, currently being followed by Pulmonology, is feeling much better today. She was on an MARILYN inhibitor, ARB and Lasix, all of which have been stopped because of a rising creatinine, which is what prompted Renal consult. She presently does not have any complaint. REVIEW OF SYSTEMS: Constitutional, psych, heme, eyes, ENT, respiratory, cardiac, GI, , endocrine, all negative except as documented above. PAST MEDICAL AND SURGICAL HISTORY: Asthma, history of diastolic heart failure, obstructive sleep apnea, history of nasal reconstruction surgery. SOCIAL HISTORY: No tobacco. FAMILY HISTORY: Not pertinent in this 71-year-old female. CURRENT MEDICATIONS: Reviewed. PHYSICAL EXAMINATION: VITAL SIGNS: Blood pressure 128/55, pulse 107, temperature 36.4, respirations 19. GENERAL: No acute distress. EYES: Extraocular movements intact. EARS: Externally normal. CARDIOVASCULAR: Tachycardic. LUNGS: Diminished breath sounds. ABDOMEN: Soft. MUSCULOSKELETAL: Nontender. PSYCHIATRIC: Awake, alert. LABORATORY DATA: White cell count 15, hemoglobin 9.7, platelets 178. Sodium 138, potassium 5.2, chloride 106, bicarbonate 21, BUN 76, creatinine 2.1, glucose 239, calcium 7.5, albumin 2.8. ASSESSMENT: [place] [id number] CONSULTATION Name: HTIAGO MONTE Kal Room: [address]#: [id number] Admission: 12/19/17 Attend Phys: Zach Lorenzo Discharge: 12/28/17 Date of : 43 Report #: [id number] 1. Acute kidney injury with admission creatinine of 1.2, creatinine up to 2.1 on 12/22/2017, she has an ejection fraction of 60%-65% with unpi-pv-thvdssmz aortic stenosis and a pulmonary artery pressure of 50. 2. Mild hyperkalemia. 3. Hypoalbuminemia. 4. Obstructive sleep apnea. 5. Asthma exacerbation. 6. Diabetes. 7. Chronic kidney disease stage 3, followed by Dr. Aparicio as an outpatient. The patient relates that her baseline creatinine is about 1.3. PLAN: 1. Acute kidney injury, multifactorial. She did receive 100 mL of dye as part of the CT angio on 12/19/2017, was also on losartan, lisinopril and Lasix, all of which have been discontinued. 2. Check a UA. 3. Check kidney ultrasound. 4. Continue IV fluids. 5. Check bladder scan. 6. Monitor I's and O's. 7. A 2 gram potassium dietary restriction. 8. Check a.m. lab. Thank you for requesting my opinion in the care and management of this patient. <ELECTRONICALLY SIGNED> By: Yimi Dumotn MD 01/08/18 1326 1708 [id number] Dumont MD /nt
== END 2017-12-28 15:44 | disposition home health service (06) | DRG 682 ==
LOC: M.ERS 12:19 → M.TBA-ER 14:04 → M.2W 14:04
PROVIDERS: Emergency Medicine Emergency Medical Services; Family Medicine; Internal Medicine Critical Care Medicine; Internal Medicine Nephrology; ADMIT Internal Medicine
PROC: 5A09357 Assistance with Respiratory Ventilation, Less than 24 Consecutive Hours, Continuous Positive Airway Pressure (ICD-10-PCS; principal; 2017-12-24)
PROC: 5A09357 Assistance with Respiratory Ventilation, Less than 24 Consecutive Hours, Continuous Positive Airway Pressure (ICD-10-PCS; 2017-12-25)
PROC: 5A09357 Assistance with Respiratory Ventilation, Less than 24 Consecutive Hours, Continuous Positive Airway Pressure (ICD-10-PCS; 2017-12-26)
PROC: 5A09357 Assistance with Respiratory Ventilation, Less than 24 Consecutive Hours, Continuous Positive Airway Pressure (ICD-10-PCS; 2017-12-27)
PROC: 5A09357 Assistance with Respiratory Ventilation, Less than 24 Consecutive Hours, Continuous Positive Airway Pressure (ICD-10-PCS; 2017-12-28)
DX: N17.9 Acute kidney failure, unspecified (principal); J96.21 Acute and chronic respiratory failure with hypoxia; J45.901 Unspecified asthma with (acute) exacerbation; R65.10 Systemic inflammatory response syndrome (SIRS) of non-infectious origin without acute organ dysfunction; I50.30 Unspecified diastolic (congestive) heart failure; I48.92 Unspecified atrial flutter; D80.1 Nonfamilial hypogammaglobulinemia; E87.2 Acidosis; G47.33 Obstructive sleep apnea (adult) (pediatric); N18.3 Chronic kidney disease, stage 3 (moderate); J44.9 Chronic obstructive pulmonary disease, unspecified; I48.91 Unspecified atrial fibrillation; E11.22 Type 2 diabetes mellitus with diabetic chronic kidney disease; I27.20 Pulmonary hypertension, unspecified; E87.5 Hyperkalemia; E83.39 Other disorders of phosphorus metabolism; E66.9 Obesity, unspecified; Z79.899 Other long term (current) drug therapy; Z88.2 Allergy status to sulfonamides; Z88.1 Allergy status to other antibiotic agents; Z68.30 Body mass index [BMI] 30.0-30.9, adult; Z88.8 Allergy status to other drugs, medicaments and biological substances

== ENCOUNTER 2017-12-29 13:07 | Inpatient (IN) | payer MEDICARE, OTHER ==
[~2017-12-29] VITALS: Ht 165.1 cm; Wt 79.4 kg
[~2017-12-29 13:07] MED LIST changes: +AMLODIPINE BESY10 MG PO; +CHERATUSSIN AC118 ML PO; +FLONASE 0.05%50 MCG NASAL; +KLONOPIN0.5 MG PO; +LANTUS100 UNIT/M SUBQ; +METHYLPREDNISOLO4 MG PO; +NORVASC2.5 MG PO; +NOVOLOG100 UNIT/1 SUBQ; +PREDNISONE 20 M20 MG PO; +PRINIVIL20 MG PO; +PROTONIX40 M1 PO; +REGLAN 10 MG TA10 MG PO; +SPIRIVA INH; +XANAX 0.25 MG0.25 MG PO
[2017-12-29 13:08] VITALS: BP 156/75
[2017-12-29 13:31] LABS: URINE BILIRUBIN NEGATIVE (Negative); URINE BLOOD 2+ (Negative); URINE CLARITY CLEAR; URINE COLOR YELLOW; URINE GLUCOSE-RANDOM NEGATIVE (Negative); URINE KETONES NEGATIVE (Negative); URINE LEUKOCYTES-REFLEX 1+ (Negative); URINE NITRITE-REFLEX NEGATIVE (Negative); URINE PROTEIN NEGATIVE (Negative); URINE UROBILINOGEN 0.2 E.U./dl (0.2-1.0)
[2017-12-29 13:38] LABS: BACTERIA-REFLEX 1-9 Few /HPF (None Seen); CASTS None Seen /LPF (None Seen); CRYSTALS None Seen /LPF (None Seen); MUCUS 4-6 Moderate strn/LPF (None Seen); SQUAMOUS 0-3 Few /LPF (0-3); URINE RBC 3-10 Few /HPF (0-2); URINE WBC-REFLEX 0-5 Rare /HPF (0-5)
[2017-12-29 13:43] LABS: MCH 29.2 pg (26.0-34.0); MCHC 33.5 g/dL (28.0-37.0); MCV 87.1 fL (80.0-100.0); NUCLEATED RBCS 0 /100WBC; PLATELET COUNT* 201 thou/uL (150-400); RBC 4.02 mil/uL (4.20-5.00); RDW-CV 14.9 % (10.5-14.5); WBC 17.2 thou/uL (4.0-11.0)
[2017-12-29 13:50] LABS: HEMOGLOBIN 11.7 gm/dL (12.0-15.0)
[2017-12-29 13:52] LABS: ANION GAP 8 mmol/L (7-16); BUN 70 mg/dL (7-18); CALCIUM 8.4 mg/dL (8.5-10.1); CHLORIDE 107 mmol/L (98-107); CO2 27 mmol/L (21-32); CREATININE 1.5 mg/dL (0.6-1.3); GLUCOSE 104 mg/dL (70-99); POTASSIUM 5.1 mmol/L (3.5-5.1); SODIUM 142 mmol/L (136-145)
[2017-12-29 13:53] LABS: APTT 22.9 Seconds (25.0-31.3); PROTIME 9.7 Seconds (9.20-11.50)
[2017-12-29 14:03] LABS: ALBUMIN 2.9 g/dL (3.4-5.0); ALKALINE PHOSPHATASE 61 U/L (46-116); NT-PRO BRAIN NAT PEPTIDE 811 pg/mL (<300); SGOT 26 U/L (15-37); SGPT 55 U/L (30-65); TOTAL BILIRUBIN 0.6 mg/dL (<0.1-1.0); TOTAL PROTEIN 5.8 g/dL (6.4-8.2); TROPONIN-I LEVEL <0.06 ng/mL (<0.06)
[2017-12-29 14:05] LABS: ABSOLUTE EOSINOPHILS 0.2 thou/uL (0.0-0.7); ABSOLUTE LYMPHOCYTES 2.1 thou/uL (0.8-5.3); ABSOLUTE MONOCYTES 1.7 thou/uL (0.0-1.2); ABSOLUTE NEUTROPHILS 13.2 thou/uL (1.6-8.1); HYPOCHROMASIA 1+; PLATELET ESTIMATE ADEQUATE
[2017-12-29 14:55] VITALS: BP 150/72
[2017-12-29 15:51] VITALS: BP 154/66
--- NOTE | 2017-12-29 16:30 | NUR ---
PT ADMITTED FROM ED WITH ACUTE RENAL FAILURE AND WEAKNESS. PT WAS DISCHARGED FROM THIS HOSPITAL YESTERDAY AND SENT HOME WITH HOME HEALTH. PT ALERT AND ORIENTED X4, UP WITH SBA TO BSC. PT SAID SHE GOT HOME AND WAS UNABLE TO GET UP OFF OF COUCH. PT ORIENTED TO ROOM, ABLE TO MAKE NEED SKNOWN, CALL LIGHT IN REACH.
--- NOTE | 2017-12-29 18:01 | EKG ---
[place] [address] ELECTROCARDIOGRAM REPORT Name: THIAGO MONTE Room: [address] IN M.R.#: [id number] Admission: 12/29/17 Attend Phys: Benita Aparicio MD Discharge: Date of : 43 Report #: [id number] THIS REPORT FOR: //name// [facility] ED Test Date: 2017-12-29 Test Time: 13:33:38 Pat Name: THIAGO MONTE Department: Room: [facility] Gender: F Knifer Up: Pamela GRACE : 1945 Requested By: Cas Cyr Order Number: [id number] MD: Nickolas Gaxiola Measurements Intervals [place] Rate: 108 P: 90 NM: 150 QRS: 50 QRSD: 89 T: 45 QT: 300 QTc: 402 Interpretive Statements Sinus tachycardia Probable left atrial enlargement Compared to ECG 12/19/2017 12:30:09 No significant changes Electronically Signed On 12-29-2017 18:01:14 CDT by Nickolas Gaxiola [email or web address] <ELECTRONICALLY SIGNED> By: Nickolas Gaxiola MD, [facility] 12/29/17 180 133 32 Nickolas Gaxiola MD, FACC /EPI
[2017-12-29 19:30] VITALS: BP 152/66
[2017-12-29 20:26] LABS: BE -0.5 mmol/L (-2 to +3); HCO3 24.1 mmol/L (22.0-26.0); PCO2 39.3 mmHg (35.0-45.0); pH 7.405 (7.340-7.450)
[2017-12-29 20:29] LABS: PO2 242.5 mmHg (75.0-100.0)
[2017-12-30 05:05] LABS: HEMOGLOBIN 9.9 gm/dL (12.0-15.0); MCH 28.6 pg (26.0-34.0); MCHC 33.2 g/dL (28.0-37.0); MCV 86.2 fL (80.0-100.0); MPV 8.9 fl. (7.2-11.1); RBC 3.48 mil/uL (4.20-5.00); RDW-CV 14.9 % (10.5-14.5); WBC 11.5 thou/uL (4.0-11.0)
[2017-12-30 06:10] LABS: ALBUMIN 2.5 g/dL (3.4-5.0); CALCIUM 7.7 mg/dL (8.5-10.1); CREATININE 1.2 mg/dL (0.6-1.3); MAGNESIUM 2.7 mg/dL (1.8-2.4); POTASSIUM 5.7 mmol/L (3.5-5.1); TOTAL BILIRUBIN 0.4 mg/dL (<0.1-1.0); TOTAL PROTEIN 4.9 g/dL (6.4-8.2)
--- NOTE | 2017-12-30 07:29 | NUR ---
PT AWAKE MOST OF NIGHT. ASSESSMENT DOCUMENTED. MEDS GIVEN PER E-MAR. IV PATENT, FLUIDS INFUSING. PT UP TO BSC WITH STAND BY ASSIST MANY TIMES THIS SHIFT. PT ASKING FOR MORE MEDICATIONS TO HAVE A BOWEL MOVEMENT. PT HAD SEVERAL SMEARS OF BOWEL MOVEMENT THIS SHIFT. PT WORE BIPAP FOR PART OF NIGHT. WILL CONTINUE WITH PLAN OF CARE.
[2017-12-30 08:25] VITALS: BP 173/72
[2017-12-30 12:11] LABS: CALCIUM 7.9 mg/dL (8.5-10.1); CREATININE 1.2 mg/dL (0.6-1.3); POTASSIUM 5.5 mmol/L (3.5-5.1)
[2017-12-30 16:38] VITALS: BP 145/66
--- NOTE | 2017-12-30 18:24 | NUR ---
PT UP IN CHAIR AND WALKING WITH ASSIST WITH P.T. PT HAD EXTRA LARGE BM THIS AM. PT DENIES PAIN OR OTHER DISCOMFORTS. PT ABLE TO MAKE NEEDS KNOWN, CALL LIGHT IN REACH
[2017-12-30 20:40] VITALS: BP 135/69
[2017-12-31 00:02] VITALS: BP 124/64
[2017-12-31 04:26] LABS: HEMATOCRIT 26.4 % (37.0-47.0); HEMOGLOBIN 8.7 gm/dL (12.0-15.0); MCH 29.1 pg (26.0-34.0); MCV 88.1 fL (80.0-100.0); RBC 2.99 mil/uL (4.20-5.00); RDW-CV 14.6 % (10.5-14.5); WBC 9.5 thou/uL (4.0-11.0)
[2017-12-31 05:03] LABS: ALBUMIN 2.3 g/dL (3.4-5.0); CALCIUM 7.8 mg/dL (8.5-10.1); CREATININE 1.6 mg/dL (0.6-1.3); MAGNESIUM 2.5 mg/dL (1.8-2.4); POTASSIUM 5.2 mmol/L (3.5-5.1); TOTAL BILIRUBIN 0.3 mg/dL (<0.1-1.0); TOTAL PROTEIN 4.7 g/dL (6.4-8.2)
--- NOTE | 2017-12-31 05:12 | NUR ---
PT SLEPT MOST OF SHIFT. ASSESSMENT DOCUMENTED. MEDS GIVEN PER E-DEC. IV PATENT. NO REPORTS OF PAIN OR NAUSEA. PT REPORTED HAVING AN INCREASINGLY DIFFICULT TIME BREATHING NIGHT PROGRESSED WITH AUDIBLE WHEEZING. EDEMA NOTED IN BILAT LOWER EXTREMETIES. DR NOTIFIED, ORDERS RECIEVED. PT WORE BIPAP THROUGH NIGHT. WILL CONTINUE WITH PLAN OF CARE.
[2017-12-31 09:10] VITALS: BP 145/57
--- NOTE | 2017-12-31 09:11 | NUR ---
INITIAL ASSESSMENT: Pt evaluated for d/c planning needs. Reviewed chart and spoke with nurse, physician, pt and pt's sister. Pt lives alone and was independent with ADL's prior to previous hospitalization. Pt was hospitalized at [facility], went home with [facility] and returned to the hospital. Pt is interested in going to SNF on d/c from hospital. Pt has walker, cane, CPAP, nebulizer and oxygen from [facility] at home. Pt was still driving. Pt was given choices and wants to go to [facility] or [facility]. Called head start coordinator at both facilities. Neither facility has bed availability until the middle of next week. Referral made to [facility].
[2017-12-31 10:30] VITALS: BP 101/47
--- NOTE | 2017-12-31 12:31 | NUR ---
RESUMED CARE OF PATIENT. ASSESSMENT DOCUMENTED. MEDS GIVEN PER E-MAR. NEW IV STARTED TO GIVE ONE TIME DOSE OV IV LASIX. NO REPORTS OF PAIN OR NAUSEA. REPORT GIVEN TO NURSE RESUMING CARE OF PATIENT.
[2017-12-31 13:05] VITALS: BP 101/47
--- NOTE | 2017-12-31 13:09 | NUR ---
PT CLEARED FOR D/C PER PHYSICIAN ORDERS. IV REMOVED. PT PERSONAL BELONGINGS PACKED AND ROOM CHECKED. PT STABLE AND STATES SHE IS READY TO GO TO REHAB AT [facility]/SNF. PT ESCORTED VIA WC WITH SNF LEAD REFINER VIA WC VAN. D/C DOCUMENTATION GIVEN TO LEAD REFINER. REPORT TO BE CALLED IN. DISCHARGE COMPLETED AT 1305.
--- NOTE | 2017-12-31 13:19 | NUR ---
[facility] REPORT ACCEPTED AND QUESTIONS ANSWERED BY THIS NURSE.
== END 2017-12-31 13:05 | DRG 871 ==
LOC: M.ERS 13:07 → M.3W 14:28 → M.TBA-ER 14:28 → M.3W 15:05
PROVIDERS: Family Medicine; ADMIT Internal Medicine
PROC: 5A09457 Assistance with Respiratory Ventilation, 24-96 Consecutive Hours, Continuous Positive Airway Pressure (ICD-10-PCS; principal; 2017-12-29)
DX: A41.9 Sepsis, unspecified organism (principal); I50.31 Acute diastolic (congestive) heart failure; N17.9 Acute kidney failure, unspecified; J96.11 Chronic respiratory failure with hypoxia; N39.0 Urinary tract infection, site not specified; D80.1 Nonfamilial hypogammaglobulinemia; I50.30 Unspecified diastolic (congestive) heart failure; E44.1 Mild protein-calorie malnutrition; J45.909 Unspecified asthma, uncomplicated; K59.00 Constipation, unspecified; I27.20 Pulmonary hypertension, unspecified; Z96.652 Presence of left artificial knee joint; R62.7 Adult failure to thrive; J20.9 Acute bronchitis, unspecified; D72.829 Elevated white blood cell count, unspecified; G47.33 Obstructive sleep apnea (adult) (pediatric); Z79.4 Long term (current) use of insulin; Z87.01 Personal history of pneumonia (recurrent); Z79.51 Long term (current) use of inhaled steroids; Z79.899 Other long term (current) drug therapy; Z88.1 Allergy status to other antibiotic agents; Z88.2 Allergy status to sulfonamides; Z88.8 Allergy status to other drugs, medicaments and biological substances

== ENCOUNTER → 2018-07-21 | Outpatient (CLI) | payer OTHER | LOC: M.RAD 11:16 | DX: S22.050D Wedge compression fracture of T5-T6 vertebra, subsequent encounter for fracture with routine healing (principal); J43.1 Panlobular emphysema; J45.40 Moderate persistent asthma, uncomplicated; I27.20 Pulmonary hypertension, unspecified; I50.9 Heart failure, unspecified; G47.33 Obstructive sleep apnea (adult) (pediatric); X58.XXXD Exposure to other specified factors, subsequent encounter; Z79.4 Long term (current) use of insulin; Z68.33 Body mass index [BMI] 33.0-33.9, adult ==